=== PATIENT | male | born 1970 ===

== ENCOUNTER 2022-09-15 21:12 | Emergency (ER) | payer BC ==
[2022-09-15] MEDS ORDERED: Sodium Chloride 0.9% 10 ML Syringe FLUSH PRN ×2 (21:47→21:52)
[2022-09-15] MEDS ORDERED: Sodium Chloride 0.9% 1,000 ML IV ONE (21:53)
[2022-09-15 22:22] LABS: TROPONIN I HIGH SENSITIVITY 11.3 pg/ml (<=60.4)
== END 2022-09-15 23:10 | disposition home or self-care (01) ==
LOC: LB.ED 21:12
DX: I10 Essential (primary) hypertension (principal); E78.00 Pure hypercholesterolemia, unspecified; K21.9 Gastro-esophageal reflux disease without esophagitis; E66.9 Obesity, unspecified; Z68.32 Body mass index [BMI] 32.0-32.9, adult
CPT/HCPCS: 36415; 80053; 81001; 83735; 83880; 84100; 84443; 84484; 85027; 85379; 96360; 99283-25; J7030